=== PATIENT | male | born 1940 | race Caucasian/White ===

== ENCOUNTER 2017-08-05 16:59 | Emergency (ER) | payer OTHER ==
--- NOTE | 2017-08-05 17:50 | ED Physician Documentation ---
General Adult - HISTORIAN Historian: patient - HPI Stated Complaint: ABSCESS Chief Complaint: General Adult Onset: days ago Timing: still present Severity: moderate Further Comments: yes (Pt is 76 yo male with an abscess on his L upper back which he has had for several weeks. Pt was seen by pcp but was not started on abx. Abscess has been draining pus. No fever or systemic sx.) - ROS CONST: no problems EYES/ENT: none CVS/RESP: none GI/: none MS/SKIN/LYMPH: other (abscess on L upper back) - PAST HX Past History: other (thyroid dz) Allergies/Adverse Reactions: Allergies Allergy/AdvReac Type Severity Reaction Status Date / Time No Known Allergies Allergy Verified 08/05/17 17:18 Home Medications: Ambulatory Orders Medication Instructions Recorded Doxycycline Hyclate 100 mg PO Q12H #28 tablet 08/05/17 Levothyroxine Sodium 75 mcg D 08/05/17 - SOCIAL HX Smoking History: non-smoker - FAMILY HX Family History: No - VITAL SIGNS Vital Signs: Vital Signs Temp Pulse Resp BP Pulse Ox 97.6 F 87 20 189/113 99 08/05/17 17:13 08/05/17 17:13 08/05/17 17:13 08/05/17 17:13 08/05/17 17:13 - REVIEWED ASSESSMENTS Nursing Assessment Reviewed: Yes Vitals Reviewed: Yes Progress - Progress Progress: Rx Doxycycline 100 mg. Take one by mouth every 12 hrs for 14 days. Avoid prolonged sun exposure while taking this medication. General Adult Physical Exam - PHYSICAL EXAM GENERAL APPEARANCE: no distress NECK: normal inspection, supple RESPIRATORY: no resp distress, chest non-tender, breath sounds normal CVS: reg rate & rhythm, heart sounds normal BACK: no CVA tenderness, other (abscess L upper back, draining pus, 4 cm diameter) SKIN: warm/dry, normal color EXTREMITIES: non-tender, normal range of motion, no evidence of injury NEURO: oriented X3, motor nml, sensation nml Discharge Clincal Impression: Abscess Prescriptions: Doxycycline Hyclate 100 mg PO Q12H #28 tablet Referrals: Yohannes Clark MD [Primary Care Provider] - 2 Days Condition: Good Disposition: 01 HOME, SELF-CARE Decision to Admit: NO Decision Time: 17:50
[2017-08-05 18:18] VITALS: BP 175/89
== END 2017-08-05 18:08 | disposition home or self-care (01) ==
LOC: ED 16:59
DX: L02.212 Cutaneous abscess of back [any part, except buttock and flank] (principal)
CPT/HCPCS: 87070; 99283